=== PATIENT | female | born 1960 | race Caucasian/White ===

== ENCOUNTER 2021-07-02 11:14 | Emergency (ER) | payer OTHER ==
--- OUTSIDE RECORDS SUMMARY | 2021-07-02 11:18 | XMS REPORT | Continuity of Care Document ---
:1960 Author Organization [facility] t Address [address] Hoffman [address] [place] [address] Care Team Providers Name Role Phone JAMIL MOON Attending Clinician Unavailable JAMIL Attending Clinician Unavailable Alexandru-Vietayo_A_AH Attending Clinician Unavailable JAMIL MOON Admitting Clinician Unavailable Alexandru-Vietayo_A_AH Admitting Clinician Unavailable Payers Payer Name Policy Type Policy Number Effective Date Expiration Date S shannanCount includes the [facility] HEALTH [id number] 2021 (MEDICARE 00:00:00 REPLACEMENT HMO) POS - [employer] [id number] [facility] [id number] 2020 HMO 00:00:00 [facility] [id number] 2019 [facility] (MEDICARE 00:00:00 REPLACEMENT/ADVANTAG E - HMO) Problems This patient has no known problems. Allergies, Adverse Reactions, Alerts Allergy Allergy Status Severity Reaction(s) Onset Inactive Treating Comm ents Source Name Type Date Date Clinician MORPHINE Allergy Active High [facility] KETOROLA Allergy Active High [facility] TRAMADOL Allergy Active High Itching [facility] MEPERIDI Allergy Active [facility] NO KNOWN Allergy Active [facility] Medications This patient has no known medications. Vital Signs Vital Name Observation Time Observation Value Comments Source WEIGHT 2020-10-04 08:32:00 115.667 kg HEIGHT 2020-09-30 15:36:00 170.2 cm WEIGHT 2020-09-30 15:36:00 117.935 kg WEIGHT 2020-10-04 08:32:00 115.667 kg HEIGHT 2020-09-30 15:36:00 170.2 cm WEIGHT 2020-09-30 15:36:00 117.935 kg Procedures This patient has no known procedures. Encounters Start End Encounter Admission Attending Care Care Encounter Source Date/Time Date/Time Type Type Clinicians Facility Department ID 2020-11-20 Outpatient JULIOJAMESDEANNA RINALDI Surgery [id number] [facility] 2021-01-04 2021-01-04 Outpatient [facility] [id number] [facility] 11[facility]01:00 11:01:00 [facility] 2020-10-04 2020-10-04 Outpatient ZARIA MOON [facility] [id number] [facility] 14:58:44 14:58:44 [facility]AVIER [facility] e 2020-09-30 2020-09-30 Outpatient [facility] [id number] [facility] 00:00:00 00:00:00 2020-05-31 2020-05-31 Outpatient Alexandru-Mbayo VFP VFP [id number] [facility] 11:02:00 11:02:00 _A_AH [id number] Family Practic e 2019-04-23 2019-04-23 Outpatient Alexandru-Mbayo VFP VFP [id number] [facility] 06:18:00 06:18:00 _A_AH [id number] Family Practic e 2019-04-01 2019-04-01 Outpatient Alexandru-Mbayo VFP VFP [id number] [facility] 07:21:00 07:21:00 _A_AH [id number] Family Practic e Results Test Description Test Time Test Comments Results Result Comments Source TISSUE EXAM 2020-10-08 Surgical Pathology 16:15:00 Report Case: [id number] Authorizing Provider: Javier Moon Collected: 10/04/2020 11:06 AM MD Emy Ordering Location: [facility] Endoscopy Received: 10/04/2020 01:52 PM Services Pathologist: Evelyn Winters MD Specimens: A) - Polyp, Colon - Right/Ascending, ascending colon polyp 2 cm removed via EMR B) - Polyp, Colon - Right/Ascending, Ascending colon polyp 1cm removed via EMR Due to fragmentation, the margins cannot be evaluated. Signing Pathologist Direct Phone Line: [phone] ically signed by Evelyn Winters MD on 10/08/2020 at 4:15 [id number] x 2Tubular adenomaA. Ascending colonB. Ascending colonA. Received in formalin labeled the patient's name, accession number and "ascending colon polyp" are multiple beltre-pink fragments of mucosal soft tissue ranging from 0.2-1.1 cm in greatest dimension. The largest fragment is inked blue. The specimen is entirely submitted as follows:Section codeA1-smaller fragments, intactA2-larger fragment, inked blue and bisectedB. Received in formalin labeled the patient's name, accession number and "ascending colon polyp" are multiple beltre soft tissue fragments ranging from 0.2-0.3 cm in greatest dimension, which are filtered and submitted in toto in B1.CHIVO Clement, HT (ASCP)Performed.A. COLON, RIGHT/ASCENDING COLON POLYP, 2 CM, ENDOSCOPIC MUCOSAL RESECTION- TUBULAR ADENOMA, FRAGMENTS OF- HIGH GRADE DYSPLASIA OR CARCINOMA NOT SEEN - SEE COMMENTB. COLON, RIGHT/ASCENDING COLON POLYP, 1 CM, ENDOSCOPIC MUCOSAL RESECTION- TUBULAR ADENOMA, FRAGMENTS OF- HIGH GRADE DYSPLASIA OR CARCINOMA NOT SEEN - SEE COMMENTB[facility], [facility] of [facility]ology, [address] [place] [id number], [facility], [address] [place] [address], [facility], [facility], [address] [place] [address],
[2021-07-02 12:26] LABS: Absolute Lymphocytes (CBC) 1.7 K/uL (0.7-4.9); Lymphocytes % 24.2 % (15.3-44.8); MPV 6.9 fL (7.6-11.3); RBC Red Blood Cell Count 4.56 M/uL (3.86-4.86)
[2021-07-02 12:43] LABS: Albumin 3.8 g/dL (3.4-5.0); Bilirubin Total 0.4 mg/dL (0.2-1.0); Potassium 3.9 mmol/L (3.5-5.1); Protein, Total 7.4 g/dL (6.4-8.2)
[2021-07-02] MEDS ORDERED: TETRACAINE HCL 0.5% 4ML OPTH ONE (12:43)
[2021-07-02] MEDS ORDERED: FLUORESCEIN SODIUM 1 MG/WRAP ONE (12:43)
[2021-07-02] MEDS ORDERED: VANCOMYCIN 1 GM/VIAL ONE (12:43)
[2021-07-02] MEDS ORDERED: NA CHLORIDE 0.9% 500 ML ONE (12:44)
--- NOTE | 2021-07-02 13:14 | RAD REPORT ---
EXAM DESCRIPTION: CT - Orbits W/Cont - 07/02/2021 1:03 pm CLINICAL HISTORY: Left eye redness, drainage in discharge COMPARISON: None. TECHNIQUE: Axial 2 millimeter thick images obtained through the orbits following nonionic IV contras t administration. Sagittal and coronal reconstruction imaging was generated and reviewed. All CT scans are performed using dose optimization technique as appropriate and may include automated exposure control or mA/KV adjustment according to patient size. FINDINGS: Enhancing, edematous soft tissues are seen involving the left dilated. The inner surface o f the enhancing edematous tissue contacts the anterior margin of the left globe. Abnormality of the g lobe itself is not suspected. The left lens and left globe contents are normal. The optic nerve, extr aocular muscles and optic nerve are unremarkable. No post septal orbital fat edema. Lacrimal gland is unremarkable. No abscess or drainable fluid collection. Right globe and right orbital contents unremarkable. No sin us abnormality. Patient has left deviation of the nasal septum. Mastoid air cells are clear. No foreign body in the soft tissues. Intracranial portion the examination is unremarkable. IMPRESSION: Edematous, enhancing tissues of the left eyelid. No abscess or drainable fluid collectio n. The involved eyelid contacts the anterior margin of the globe. Intrinsic globe abnormality is not mehran ntified. No post septal left orbit abnormality.
--- NOTE | 2021-07-02 13:36 | ER ---
Nurse's Notes [facility] Name: eVrito Bustos Age: 60 yrs Sex: Female : 1960 Arrival Date: 07/02/2021 Time: 11:19 Bed 15 Private MD: Monroe Sal E Diagnosis: Unspecified acute conjunctivitis, left eye Presentation: 07/02 11:30 Chief complaint: Patient states: Left eye redness, drainage and discharge since vg1 yesterday morning. Stated took Tylenol #4 at 0830. Coronavirus screen: Vaccine status: Patient reports receiving the 1st dose of the Covid vaccine. Client denies travel out of the [place] in the last 14 days. Ebola Screen: Patient denies exposure to infectious person. Patient denies travel to an Ebola-affected area in the 21 days before illness onset. Mechanism of Injury: No Mechanism of Injury. The patient denies any loss of vision. Initial Sepsis Screen: Does the patient meet any 2 criteria? No. Patient's initial sepsis screen is negative. Does the patient have a suspected source of infection? No. Patient's initial sepsis screen is negative. Risk Assessment: Do you want to hurt yourself or someone else? Patient reports no desire to harm self or others. Onset of symptoms was July 01, 2021. 11:30 Method Of Arrival: Ambulatory vg1 11:30 Acuity: SUSAN 4 vg1 Triage Assessment: 11:32 General: Appears uncomfortable, Behavior is calm, cooperative. Pain: Complains of pain vg1 in left eye Pain currently is 7 out of 10 on a pain scale. Pain began 1 day ago. EENT: Eyes are tearing on outer aspect of conjuctiva of left eye, iris of left eye and inner aspect of conjunctiva of left eye "the light hurts my eye". Historical: - Allergies: 11:32 Demerol; vg1 11:32 MS Contin; vg1 11:32 Toradol; vg1 11:32 Ultram; vg1 - PMHx: 11:32 Arthritis; Hypertension; psoriasis; Psoriatic Arthritis; R rib neuragia; vg1 - Immunization history:: Client reports receiving the 1st dose of the Covid vaccine. - Social history:: Smoking status: Patient reports the use of cigarette tobacco products, smokes one pack cigarettes per day. - Family history:: not pertinent. Screenin:00 Abuse screen: Denies threats or abuse. Denies injuries from another. Nutritional ph screening: No deficits noted. Tuberculosis screening: No symptoms or risk factors identified. Fall Risk. Assessment: 12:30 General: Appears in no apparent distress. uncomfortable, Behavior is calm, cooperative, ph appropriate for age. Pain: Complains of pain in left eye. Neuro: No deficits noted. EENT: Sclera/Cornea are reddened in left eye. Derm: No deficits noted. Musculoskeletal: Circulation, motion, and sensation intact. Range of motion: intact in all extremities. 14:43 Reassessment: awaiting for vanc infusion to complete prior to discharge. ss Vital Signs: 11:30 BP 159 / 89; Pulse 63; Resp 18; Temp 98.6; Pulse Ox 97% on R/A; Weight 104.33 kg; vg1 Height 5 ft. 7 in. (170.18 cm); Pain 7/10; 13:00 BP 147 / 88; Pulse 62; Resp 18; Pulse Ox 99% on R/A; ph 11:30 Body Mass Index 36.02 (104.33 kg, 170.18 cm) vg1 ED Course: 11:19 Patient arrived in ED. mr 11:19 Monroe Sal MD is Private Physician. mr 11:32 Triage completed. vg1 11:32 Arm band placed on. vg1 11:39 Kerwin Nelson MD is Attending Physician. ma2 12:00 Naila Baker, PARUL is Primary Nurse. ph 12:01 Patient has correct armband on for positive identification. Bed in low position. Call ph light in reach. Side rails up X 1. Door closed. Noise minimized. Lights dimmed. 12:20 Initial lab(s) drawn, by ms, sent to lab. Inserted saline lock: 20 gauge in left dh3 antecubital area, using aseptic technique. Blood collected. 13:05 Orbits W/Cont In Process Unspecified. EDMS 13:30 No provider procedures requiring assistance completed. ph 13:36 Raheel Bell MD is Referral Physician. ma2 15:00 IV discontinued, intact, bleeding controlled, No redness/swelling at site. Pressure ph dressing applied. Administered Medications: 13:27 Drug: vancoMYCIN 1 grams Route: IVPB; Infused Over: 2 hrs; Site: right antecubital; ph 15:02 Follow up: Response: No adverse reaction; IV Status: Completed infusion; IV Intake: ph 500ml 13:45 Drug: Tetracaine Drops 0.5 % 1 drops Route: Ophthalmic; Site: left eye; ph 14:00 Follow up: Response: No adverse reaction ph 14:19 Not Given (Other Intervention Used): ERYTHromycin Ointment 1 application Ophthalmic onceph Medication: 12:00 VIS not applicable for this client. ph Intake: 15:02 IV: 500ml; Total: 500ml. ph Outcome: 13:36 Discharge ordered by MD. cole 15:02 Patient left the ED. ph 15:02 Discharged to home ambulatory. ph 15:02 Condition: good 15:02 Discharge instructions given to patient, Instructed on discharge instructions, follow up and referral plans. medication usage, Demonstrated understanding of instructions, follow-up care, medications, Prescriptions given X 3. Signatures: Dispatcher [employer] POONAMIN GigiEloisa Shelby, RN RN Naila Baker RN RN Ghada Kelly [facility] Kerwin Nelson MD MD ca2 Jyothi Batres RN RN vg1 Corrections: (The following items were deleted from the chart) 11:33 11:30 Chief complaint: Patient states: Left eye redness and drainage since yesterday vg1 morning. vg1 14:19 13:45 ERYTHromycin Ointment 1 application Ophthalmic in left eye ph ph
--- NOTE | 2021-07-02 13:36 | EDPHYS ---
Physician Documentation [facility] Name: Verito Bustos Age: 60 yrs Sex: Female : 1960 Arrival Date: 07/02/2021 Time: 11:19 Bed 15 Private MD: Monroe Sal E ED Physician Kerwin Nelson HPI: 07/02 12:34 This 60 yrs old Female presents to ER via Ambulatory with complaints of Redness of Eye, ma2 Eye Pain. 12:34 -year-old female with no prior eye problems or eye surgeries presents with left eye ma2 redness and pain for 1 day, described as severe pain, no eye trauma.. Historical: - Allergies: 11:32 Demerol; vg1 11:32 MS Contin; vg1 11:32 Toradol; vg1 11:32 Ultram; vg1 - PMHx: 11:32 Arthritis; Hypertension; psoriasis; Psoriatic Arthritis; R rib neuragia; vg1 - Immunization history:: Client reports receiving the 1st dose of the Covid vaccine. - Social history:: Smoking status: Patient reports the use of cigarette tobacco products, smokes one pack cigarettes per day. - Family history:: not pertinent. ROS: 12:34 Constitutional: Negative for fever, chills, and weight loss. ma2 12:34 All other systems are negative. Exam: 12:34 Visual Acuity: Visual acuity is within normal limits. ma2 12:34 Constitutional: This is a well developed, well nourished patient who is awake, alert, and in no acute distress. Head/Face: Normocephalic, atraumatic. ENT: Nares patent. No nasal discharge, no septal abnormalities noted. Tympanic membranes are normal and external auditory canals are clear. Oropharynx with no redness, swelling, or masses, exudates, or evidence of obstruction, uvula midline. Mucous membranes moist. Neck: Trachea midline, no thyromegaly or masses palpated, and no cervical lymphadenopathy. Supple, full range of motion without nuchal rigidity, or vertebral point tenderness. No Meningismus. Chest/axilla: Normal chest wall appearance and motion. Nontender with no deformity. No lesions are appreciated. Cardiovascular: Regular rate and rhythm with a normal S1 and S2. No gallops, murmurs, or rubs. Normal PMI, no JVD. No pulse deficits. 12:34 Eyes: Periorbital structures: appear normal, no acute changes, no abrasion, no cellulitis, no contusion, no ecchymosis, no erythema, no laceration, no swelling, Pupils: equal, round, and reactive to light and accomodation, are fixed and dilated, equal, Extraocular movements: intact throughout, Conjunctiva: chemosis, that is moderate, in left eye, Corneas: Sclera: no acute changes, Lids and lashes: appear normal, Examination of the other eye reveals no obvious gross abnormality, Eyes normal. Vital Signs: 11:30 BP 159 / 89; Pulse 63; Resp 18; Temp 98.6; Pulse Ox 97% on R/A; Weight 104.33 kg; vg1 Height 5 ft. 7 in. (170.18 cm); Pain 7/10; 13:00 BP 147 / 88; Pulse 62; Resp 18; Pulse Ox 99% on R/A; ph 11:30 Body Mass Index 36.02 (104.33 kg, 170.18 cm) vg1 MDM: 12:05 Patient medically screened. ma2 13:35 Differential diagnosis: Corneal abrasion of Acute iritis of Ultraviolet keratitis in. ma2 Data reviewed: vital signs, nurses notes. Counseling: I had a detailed discussion with the patient and/or guardian regarding: the historical points, exam findings, and any diagnostic results supporting the discharge/admit diagnosis, the presence of at least one elevated blood pressure reading (>120/80) during this emergency department visit, the need for outpatient follow up. Response to treatment: the patient's symptoms have markedly improved after treatment. 07/02 12:05 Order name: CBC with Diff; Complete Time: 13:31 ma2 07/02 12:05 Order name: CMP; Complete Time: 13:31 ma2 07/02 12:12 Order name: Orbits W/Cont; Complete Time: 13:31 EDMS 07/02 12:05 Order name: Eye Tray; Complete Time: 13:45 ma2 07/02 12:05 Order name: IV Start; Complete Time: 12:19 ma2 Administered Medications: 13:27 Drug: vancoMYCIN 1 grams Route: IVPB; Infused Over: 2 hrs; Site: right antecubital; ph 15:02 Follow up: Response: No adverse reaction; IV Status: Completed infusion; IV Intake: ph 500ml 13:45 Drug: Tetracaine Drops 0.5 % 1 drops Route: Ophthalmic; Site: left eye; ph 14:00 Follow up: Response: No adverse reaction ph 14:19 Not Given (Other Intervention Used): ERYTHromycin Ointment 1 application Ophthalmic onceph Disposition Summary: 07/02/21 13:36 Discharge Ordered Location: Home ma2 Condition: Stable ma2 Diagnosis - Unspecified acute conjunctivitis, left eye ma2 Followup: ma2 - With: - When: Tomorrow - Reason: If symptoms return Discharge Instructions: - Discharge Summary Sheet ma2 - Bacterial Conjunctivitis, Adult ma2 - How to Use Eye Drops and Eye Ointments ma2 - Bacterial Conjunctivitis, Adult, [id number]-[id number] ma2 Forms: - Medication Reconciliation Form ma2 - Thank You Letter ma2 - Antibiotic Education ma2 - Prescription Opioid Use sd2 Prescriptions: - Augmentin 875-125 mg Oral Tablet - take 1 tablet by ORAL route every 12 hours for 10 days; 20 tablet; Refills: 0, ma2 Product Selection Permitted - Diclofenac Sodium 75 mg Oral Tablet Sustained Release - take 1 tablet by ORAL route 2 times per day; 30 tablet; Refills: 0, Product ma2 Selection Permitted - Gentamicin 0.3 % (3 mg/gram) Ophthalmic Ointment - apply 0.5 inch by OPHTHALMIC route 2-3 times daily for 7 days; 3.5 gram; ma2 Refills: 0, Product Selection Permitted Signatures: Dispatcher [employer] Naila Storey, PARUL TERAN ph Kerwin Nelson MD MD sd2 Jyothi Batres RN RN vg1
[2021-07-02 15:07] VITALS: BP 159/89; TEMP 98.6; O2SAT 97
== END 2021-07-02 15:02 | disposition home or self-care (01) ==
LOC: ER 11:14
DX: H10.9 Unspecified conjunctivitis (principal); Z88.6 Allergy status to analgesic agent; I10 Essential (primary) hypertension; F17.210 Nicotine dependence, cigarettes, uncomplicated
CPT/HCPCS: 96365; 85025; 36415; 80053; 70481; 99284; 96366; Q9967; J3370; J7040

== ENCOUNTER 2022-07-10 06:18 | Day surgery (SDC) | payer OTHER ==
[2022-07-04 09:35] LABS: Specific Gravity 1.005 (1.005-1.030); Urine Bilirubin NEGATIVE (Negative); Urine Blood Negative (Negative); Urine Clarity Clear (Clear); Urine Color Colorless (Yellow); Urine Glucose NEGATIVE (Negative); Urine Protein NEGATIVE (Negative); Urine Urobilinogen Normal (Normal)
[2022-07-04 09:35] LABS: Absolute Lymphocytes (CBC) 2.1 K/uL (0.7-4.9); Hematocrit 43.8 % (36.0-45.0); Lymphocytes % 37.9 % (15.3-44.8); MCV 95.4 fL (80-100); MPV 6.8 fL (7.6-11.3); RBC Red Blood Cell Count 4.59 M/uL (3.86-4.86)
[2022-07-04 10:05] LABS: Potassium 4.2 mEq/L (3.5-5.1)
[2022-07-04 10:09] LABS: Protime INR 0.85
--- NOTE | 2022-07-04 12:19 | RAD REPORT ---
EXAM DESCRIPTION: RAD - Chest Pa And Lat (2 Views) - 07/04/2022 9:24 am CLINICAL HISTORY: Pre op pending pelvic repair. Hypertension COMPARISON: Chest Pa And Lat (2 Views) dated 06/18/2017; CHEST PA AND LAT 2 VIEW dated 05/12/2010; CHEST SINGLE VIEW dated 07/22/2009; CHEST PA AND LAT 2 VIEW dated 08/04/2008 TECHNIQUE: PA and lateral views of the chest were obtained. FINDINGS: The lungs are clear. Heart size is normal and central vasculature is within normal limits. No pleural effusion or pneumothorax seen. No acute bony finding noted. IMPRESSION: No acute cardiopulmonary process.
[2022-07-10] MEDS ORDERED: NA CHLORIDE 0.9% 100 ML ONE (07:00)
[2022-07-10] MEDS ORDERED: CEFAZOLIN 3 GM in NA CHLORIDE 0.9% 100 ML IVPB SCH (07:00)
[2022-07-10] MEDS ORDERED: VASOPRESSIN 20 UNIT/ML VIAL ONE (07:00)
[2022-07-10] MEDS ORDERED: LIDOCAINE HCL/EPINEPHRINE 20 ML MDV ONE (07:00)
[2022-07-10] MEDS ORDERED: CEFAZOLIN SODIUM 1 GM/VIAL ONE (07:00)
[2022-07-10] MEDS ORDERED: Ringers Lactate 1,000 ML IV ONE ×3 (07:04→13:43)
[2022-07-10] MEDS ORDERED: propofoL 200 MG/20 ML VIAL IV ONE ×2 (07:06→07:18)
[2022-07-10] MEDS ORDERED: ROCURONIUM 50 MG/5 ML VIAL IV ONE ×3 (07:07→08:50)
[2022-07-10] MEDS ORDERED: FENTANYL CITR 250 MCG/5 ML ONE (07:08)
[2022-07-10] MEDS ORDERED: LIDOCAINE 2% MPF 5 ML VIAL ONE ×2 (07:09→07:10)
[2022-07-10] MEDS ORDERED: MIDAZOLAM HCL 2 MG/2 ML INJ ONE (07:12)
[2022-07-10] MEDS ORDERED: EPHEDRINE SULF 50 MG/ML VIAL ONE (08:17)
[2022-07-10] MEDS ORDERED: Phenylephrine HCl 10 MG/ML 1 ML VIAL ONE (08:20)
[2022-07-10] MEDS ORDERED: ONDANSETRON 4 MG/2 ML VIAL ONE (08:20)
[2022-07-10] MEDS ORDERED: NS 0.9% VIAL 20 ML ONE (08:21)
[2022-07-10] MEDS ORDERED: GLYCOPYRROLATE 0.2 MG/ML SYR ONE ×2 (08:49→09:24)
[2022-07-10] MEDS ORDERED: dexAMETHasone 10 MG/ML VIAL ONE (08:50)
[2022-07-10] MEDS ORDERED: NEOSTIGMINE 1 MG/ML -10 ML VIAL ONE (09:24)
[2022-07-10] MEDS ORDERED: FENTANYL CITR 100 MCG/2 ML ONE (10:48)
[2022-07-10] MEDS ORDERED: HYDROMORPHONE HCL 1 MG/ML INJ IV PRN (11:47)
[2022-07-10] MEDS ORDERED: PROMETHAZINE INJ 25 MG/ML AMP IV PRN (11:52)
[2022-07-10] MEDS ORDERED: ACETAMINOPHEN 325 MG TABLET PO PRN (11:52)
[2022-07-10] MEDS: HYDROMORPHONE HCL 1 MG/ML INJ ONE ×4 (12:05→13:57)
[2022-07-10] MEDS: Ringers Lactate 1,000 ML IV SCH ×2 (14:00→23:35)
[2022-07-10 14:06] VITALS: BMI 31.6
[2022-07-10] MEDS: HYDROMORPHONE HCL 1 MG/ML INJ IV PRN ×2 (17:09→23:35)
[2022-07-10] MEDS: DOCUSATE NA 100 MG CAP PO SCH (20:17)
[2022-07-11 03:43] LABS: Hematocrit 38.2 % (36.0-45.0); Lymphocytes % 13.1 % (15.3-44.8); MCV 94.5 fL (80-100); MPV 7.3 fL (7.6-11.3); RBC Red Blood Cell Count 4.04 M/uL (3.86-4.86)
[2022-07-11] MEDS: DOCUSATE NA 100 MG CAP PO SCH (08:34)
[2022-07-11] MEDS: Ringers Lactate 1,000 ML IV SCH (08:34)
[2022-07-11 08:57] VITALS: BP 135/62; TEMP 97.2
[2022-07-11 10:03] VITALS: O2SAT 92
[2022-07-11] MEDS: HYDROMORPHONE HCL 1 MG/ML INJ IV PRN (10:05)
--- NOTE | 2022-07-19 23:31 | OP ---
Date of Procedure: 07/10/2022 Surgeon: Helen Doe MD Press Writer: Malgorzata Rivero. Preoperative Diagnoses: Stage II anterior wall prolapse, overactive bladder, and wall prolapse. Postoperative Diagnoses: Stage II anterior wall prolapse, apical enterocele, apical wall prolapse, a nd perineocele. Procedures Performed: Bilateral sacrospinous ligament fixation, colpopexy, anterior repair with biol ogic graft and apical enterocele repair. Posteriorly perineocele repair was performed. Anesthesia: General endotracheal. Estimated Blood Loss: 50. Complications: No complications. Drains: Harris catheter. Findings: POP-Q 0, 0- 4, 6, moderate 7.5, -1, -1, and perineocele was obvious on examination after r eduction of the prolapse and then the patient was relaxed under anesthesia. An apical enterocele wit h small bowel in it was noted on dissection of the vaginal wall. There was no MERARI on Valsalva even w ith 300 mL of fluid in the bladder. Cystoscopy showed patent ureters. The anterior biologic graft w as 8 x 4 x 5. Condition: Stable. Indications: The patient is a 61-year-old, known to our practice for over 10 years, had a posterior defect repair and a unilateral sacrospinous fixation. She has done well with that and had chronic co nstipation that has been due to chronic pain medication use and back pain. She has been managing the constipation well and bowel regimen well. The patient presented with overactive bladder symptoms an d noted to have an anterior wall prolapse on examination. Her bladder was evaluated with cystoscopy, urodynamics. The functional evaluation was completed as well and we decided to offer her either an option of the management with a pessary or surgical option and vaginal laparoscopic repair as well we re all reviewed, then possible posterior defect repairs were also reviewed with the patient. She has no evidence of any occult MERARI and had no symptoms either. So plan to retest while under anesthesia. She was not consented for sling. Procedure In Detail: After informed consent was verified, medical clearance was obtained. The patie nt was taken back to OR and placed in supine fashion on the operating table. 2 g of Ancef were given . SCDs were placed. Time-out was done and procedure started. Abdomen, vulva, vagina, and perineum were prepped and draped in a sterile fashion. Harris was placed to drain the bladder and retracted callejas periorly. Once the Pop-Q was done, it was very obvious that the perineocele is the reason for the la rge genital hiatus in patient despite the posterior wall being intact. There was an apical enterocel e, which was prolapsing through the anterior compartment. So plan was to support the anterior wall w ith a biologic graft and do colpopexy bilaterally and then do a perineocele repair. Anterior wall repair: The anterior wall of the vagina from the area below the bladder neck to the ap ex of the vagina were held with 2 Allis clamps. The defect was more lateral and at the apex than in the distal part of the anterior wall. It appears to be well connected to the precervical fascia. Dilute vasopressin was injected here and a midline incision was made from the proximal part of the bl adder neck to the wall. The dissection was carried to separate the bladder from the overlying tissue . Once this was done, then I entered the paravaginal space. Once I entered the paravaginal space on either side, dissection was carried towards the ischial spine as there was right sacrospinous fixati on this area was slightly scarred. Careful dissection was performed right at the level of the spine and sweeping medial and posterior to the ischial spine, the sacrospinous ligament was cleared up. I made sure that the bowel was also dissected away from the sacrospinous ligament. I then went onto th e opposite side and performed the same dissection. Then paravaginal space was cleared clearing the w brain line, while sweeping anteriorly and laterally to the ischial spine. Once the white line on the left was identified and the white line on the right was identified, then the proximal part of the ant erior wall fascia was exposed. On dissecting the apex to the vaginal wall, there was a clear enteroc wayne with small bowel. Once the anterior vaginal wall was lifted with the help of a curved Jai, th en the enterocele was clearly visualized and carefully the peritoneum plicated with 3-0 Monocryl to c lose the enterocele. Once this was done, an 8 x 4 x 5 cm biologic graft was fashioned and the apex w as sutured through the vaginal wall with 2-0 PDS sutures x3 in the center at the apex of the vagina. Then, the sacrospinous sutures were placed with the help of Capio device Prolene suture on the sacro spinous first on the left then on the right. Then PDS sutures on the white line on either side about 3 cm lateral and anterior to the ischial spine. Once these were all placed, they were all hooked up to the Hope retractors and then anterior midline distal sutures were placed at the bladder neck right above the bladder neck with three 2-0 PDS sutures. Once this was done, the graft was attached on the sides to the sacrospinous ligament sutures after the midline distal part was attached with th e sutures to the graft. Then once the sacrospinous bites were passed through the graft, the paravagi nal graft bites were also passed through the graft and then the sacrospinous sutures were tied first followed by the paravaginal sutures. The graft was not under excessive tension and was tensioned radha ropriately slightly snug. Once the vaginal epithelial closure was started. I was able to close with a continuous running 2-0 Vicryl. All the sutures were tied and cut and the incision was closed. No vaginal trimming was necessary for this patient. Posteriorly the defect in perineocele was identified on the rectovaginal exam and this area was prepp ed, injected with dilute vasopressin in the midline as well as in the lateral aspects. The external anal sphincter also appeared to be compromised to a good extent. So the dissection was superiorly to the rectovaginal septum and the lateral wall spaces were opened up and the remnant of the deep trans verse perineum was picked up and the edges of the external anal sphincter as well were picked up and they were sutured with the help of 2-0 Vicryl sutures in a [id number] fashion robustly without tens ion. Then, the perineum was reattached to the rectovaginal septum with 2-0 Vicryl sutures. Then the midline perineal reconstruction was performed in 3 layers with continuous suturing. Once this was d one, vaginal epithelium was closed with the help of 3-0 Vicryl. The bladder was drained with the rem oval of Harris and cystoscopy was performed. No evidence of any trauma or foreign body in the bladder . Bladder appeared to be well lifted and both ureteric orifices were patent. Harris was replaced. T he patient's bladder was filled with over 300 first and made sure there was a Valsalva test and there was no leak. Rectal exam was done and was negative for any trauma or foreign body. She was recovered from anesthesia and taken to PACU in stable condition. GILBERTO/MARCIA Voice ID: [id number] Report ID: [id number]
== END 2022-07-11 12:09 | disposition home or self-care (01) ==
LOC: OR 06:18 → 2ND 13:39 → OR 07-11 12:09
PROVIDERS: ATTEND Obstetrics & Gynecology
PROC: 0JUC0JZ Supplement of Pelvic Region Subcutaneous Tissue and Fascia with Synthetic Substitute, Open Approach (ICD-10-PCS; 2022-07-10)
PROC: 0JQC0ZZ Repair Pelvic Region Subcutaneous Tissue and Fascia, Open Approach (ICD-10-PCS; 2022-07-10)
PROC: 0USG7ZZ Reposition Vagina, Via Natural or Artificial Opening (ICD-10-PCS; principal; 2022-07-10 07:30)
DX: N81.2 Incomplete uterovaginal prolapse (principal); N32.81 Overactive bladder; N81.81 Perineocele
CPT/HCPCS: 57282; 57240; 85025 ×2; 80048; 36415 ×2; 86900; 86850; 85610; 86901; 85730; 81003; 71046; 94010; A4216; J2704 ×2; J2710; J2370; J2001 ×2; J2250; J3010 ×2; J1100; J1170 ×6; J2405; J7120 ×4; J0690 ×2